=== PATIENT | male | born 1980 | race Caucasian/White ===

== ENCOUNTER 2021-05-13 20:07 | Emergency (ER) | payer BC ==
[2012-06-16 16:19] VITALS: BP 124/72
[2021-05-13] MEDS ORDERED: Sodium Chloride 0.9% 1000 ML 1,000 ML IV STA ×2 (20:13→20:17)
[2021-05-13] MEDS ORDERED: solu-MEDROL 125 MG, Sterile H2O 10 ml 2 ML IV ONE ×2 (20:13)
[2021-05-13] MEDS ORDERED: Zofran 4 MG/2 ML VIAL IV ONE (20:13)
[2021-05-13] MEDS ORDERED: Zithromax 500 MG/ 250 ML NaCl Premix 500 MG/250 ML IVPB IV STA (20:13)
[2021-05-13] MEDS ORDERED: Sodium Chloride 0.9% 1000 ML 1,000 ML ONE ×2 (20:16→21:27)
[2021-05-13] MEDS ORDERED: solu-MEDROL ONE (20:22)
[2021-05-13] MEDS ORDERED: Zofran 4 MG/2 ML VIAL ONE (20:22)
[2021-05-13] MEDS ORDERED: Zithromax 500 MG/ 250 ML NaCl Premix 500 MG/250 ML IVPB IV ONE (20:23)
[2021-05-13] MEDS ORDERED: Sterile H2O 10 ml IJ ONE (20:23)
[2021-05-13] MEDS ORDERED: Reglan 10 MG/2 ML IV ONE (20:25)
[2021-05-13 20:42] LABS: Absolute Neutrophil Ct (ANC) 3.31 (1.4-6.9); BASOPHIL % 0.2 % (0.0-0.4); Basophil (Absolute #) 0.01 (0-0.4); Eosinophil % 0.2 % (0.00-5.0); Eosinophil (Absolute #) 0.01 (0-0.5); Hemoglobin 16.7 gm/dl (12.5-18.0); Lymphocyte (Absolute #) 1.45 (1.0-4.6); Mean Cell Volume 90.4 fl (78-100); Mean Corpuscular Hemoglobin 30.2 pg (26-32); Mean Corpuscular Hgb Concent. 33.4 g/dl (32-36); Mean Platelet Volume 10.9 fl (7.5-11.0); Monocyte (Absolute #) 0.39 (0.0-1.3); Monocytes % 7.5 % (0.0-12.0); Neutrophil % 64.1 % (36.0-66.0); Platelet Count 226 K/mm3 (150-450); Red Blood Count 5.53 M/mm3 (4.1-5.6); Red Cell Distribution Width 13.1 % (11.5-14.0); White Blood Count 5.2 K/mm3 (4.0-10.5)
[2021-05-13 20:54] LABS: ALBUMIN 4.3 g/dL (3.5-5.0); ALKALINE PHOSPHATASE 64 U/L (38-126); ANION GAP 15.8 MEQ/L (5-15); BLOOD UREA NITROGEN 12 mg/dL (9-20); CHLORIDE 100 mmol/L (98-107); Calcium 8.7 mg/dL (8.4-10.2); Carbon Dioxide 26 mmol/L (22-30); Creatinine 1 1.14 mg/dL (0.66-1.25); EST GLOMERULAR FILTRATION RATE > 60.0 ML/MIN; Glucose 97 mg/dL (74-106); SGOT/AST 60 U/L (17-59); SGPT/ALT 59 U/L (0-50); SODIUM 138 mmol/L (137-145); Total Protein 7.4 g/dL (6.3-8.2)
[2021-05-13] MEDS ORDERED: Reglan 10 MG/2 ML ONE (21:07)
--- NOTE | 2021-05-13 21:37 | ERPHSYRPT ---
- History of Present Illness Time Seen by Provider: 05/13/21 20:25 Source: patient Exam Limitations: no limitations Patient Subjective Stated Complaint: pt states he tested positive for covid approx 9 days ago. has a frequent cough, and has been vomiting for last 24 hours. states he has urinated only about 2 times in last 24 hours and thinks he is dehydrated. temp at home has been 101-104 Triage Nursing Assessment: pt alert and oriented, answers questions approp. pt ambulates into room with steady gait noted. respirations nonlabored with freq uent hacking cough noted. skin hot and dry. Physician History: Patient is a 40-year-old male who is been sick for 9 days with Covid. His 7-year-old son developed Covid 11 days ago. And he tested +9 days ago he had nausea vomiting and decreased urine output he also has a bad cough which is productive he is short of breath and he has had intermittent nausea and vomiting as well as fever and chills. He is also lost his sense of smell. Sats on admission on room air were in the 98 -99 range Allergies/Adverse Reactions: No Known Drug Allergies Allergy (Unverified 06/16/12 14:46) Home Medications: No Home Meds 06/16/12 [History] Hx Tetanus, Diphtheria Vaccination/Date Given: No Hx Influenza Vaccination/Date Given: No Hx Pneumococcal Vaccination/Date Given: No Immunizations Up to Date: No Travel Risk - International Travel Have you traveled outside of the country in past 3 weeks: No - Coronavirus Screening Are you exhibiting any of the following symptoms?: Yes Symptoms: Fever, Cough: New Onset, Vomiting/Diarrhea, Loss of Taste or Smell, Headaches/Body Aches/Fatigue Close contact with a COVID-19 positive Pt in past 14-21 Days: Yes - Vaccine Status Have you recieved a Covid-19 vaccination: No - Review of Systems Constitutional: Fever, Chills, Fatigue, Lethargy, Night Sweats Eyes: No Symptoms Ears, Nose, & Throat: Nose Congestion Respiratory: Cough, Dyspnea, Dyspnea on Exertion (LAUREN) Cardiac: No Symptoms Abdominal/Gastrointestinal: Nausea, Vomiting Genitourinary Symptoms: No Symptoms Musculoskeletal: Arthralgias, Joint Pain, Myalgias Skin: No Symptoms Neurological: No Symptoms Psychological: No Symptoms Endocrine: No Symptoms - Past Medical History Pertinent Past Medical History: No - Past Surgical History Past Surgical History: Yes - Social History Smoking Status: Former smoker Exposure to second hand smoke: No Drug Use: none Patient Lives Alone: No - Nursing Vital Signs Nursing Vital Signs: Initial Vital Signs Temperature 100.1 F 05/13/21 20:20 Pulse Rate 90 05/13/21 20:20 Respiratory Rate 18 05/13/21 20:20 Blood Pressure 144/85 05/13/21 20:20 O2 Sat by Pulse Oximetry 97 05/13/21 20:20 Pain Scale Pain Intensity 4 - Physical Exam General Appearance: mild distress, alert Eye Exam: PERRL/EOMI, eyes nml inspection Ears, Nose, Throat Exam: normal ENT inspection, TMs normal, pharynx normal, moist mucous membranes Neck Exam: normal inspection, non-tender, supple, full range of motion Respiratory Exam: airway intact, crackles/rales, No respiratory distress Cardiovascular Exam: regular rate/rhythm, normal heart sounds Gastrointestinal/Abdomen Exam: soft, No tenderness Back Exam: normal inspection, No CVA tenderness, No vertebral tenderness Extremity Exam: normal inspection, normal range of motion Neurologic Exam: alert, oriented x 3, cooperative, normal mood/affect, sensation nml, No motor deficits Skin Exam: normal color, warm, dry, No rash Lymphatic Exam: No adenopathy SpO2: 97 - Course Nursing assessment & vital signs reviewed: Yes EKG Interpreted by Me: RATE (83), Sinus Rhythm, NORMAL AXIS, NORMAL INTERVALS, NORMAL QRS, NORMAL ST-T - Radiology Exams Chest X-ray Interpretation: Interpreted by me, Other (Bilateral opacities greater on the left than the right) Ordered Tests: Active Orders 24 hr Category Date Time Status EKG-ER Only STAT Care 05/13/21 20:13 Active CHEST 1 VIEW (PORTABLE) Stat Exams 05/13/21 20:15 Taken BLOOD CULTURE Stat Lab 05/13/21 20:38 Received CBC W DIFF Stat Lab 05/13/21 20:37 Completed CMP Stat Lab 05/13/21 20:37 Completed D-DIMER QUANTITATIVE Stat Lab 05/13/21 20:37 Completed Lactic Acid Stat Lab 05/13/21 20:13 Completed PROCALCITONIN Stat Lab 05/13/21 20:38 Completed TROPONIN Q3H Lab 05/13/21 20:37 Completed TROPONIN Q3H Lab 05/13/21 23:30 Ordered UA W/RFX UR CULTURE Stat Lab 05/13/21 20:14 Ordered Medication Summary Discontinued Medications Generic Name Dose Route Start Last Admin Trade Name Riley PRN Reason Stop Dose Admin Methylprednisolone Sodium 0 mg 05/13/21 20:13 05/13/21 20:24 Succinate 125 mg/ Sterile IV 05/13/21 20:14 125 mg Water 2 ml STAT ONE Administration Sodium Chloride Confirm 05/13/21 20:16 Sodium Chloride 0.9% 1000 Ml Administered 05/13/21 20:17 Dose 1,000 mls @ ud .ROUTE .STK-MED ONE Sodium Chloride 1,000 mls @ 999 mls/hr 05/13/21 20:13 05/13/21 20:19 Sodium Chloride 0.9% 1000 Ml IV 05/13/21 21:13 999 mls/hr .Q1H1M STA Administration Azithromycin 500 mg in 250 mls @ 250 mls/hr 05/13/21 20:13 05/13/21 20:26 Zithromax 500 Mg/ 250 Ml Nacl Premix IV 05/13/21 21:12 250 mls/hr STAT STA 250 mls/hr Administration Sodium Chloride 1,000 mls @ 999 mls/hr 05/13/21 20:17 05/13/21 21:29 Sodium Chloride 0.9% 1000 Ml IV 05/13/21 21:17 999 mls/hr .Q1H1M STA Administration Azithromycin Confirm 05/13/21 20:23 Zithromax 500 Mg/ 250 Ml Nacl Premix Administered 05/13/21 20:24 Dose 500 mg in 250 mls @ ud IV .STK-MED ONE Sodium Chloride Confirm 05/13/21 21:27 Sodium Chloride 0.9% 1000 Ml Administered 05/13/21 21:28 Dose 1,000 mls @ ud .ROUTE .STK-MED ONE Methylprednisolone Sodium Succinate Confirm 05/13/21 20:22 Solu-Medrol Administered 05/13/21 20:23 Dose 125 mg .ROUTE .STK-MED ONE Metoclopramide HCl 10 mg 05/13/21 20:25 05/13/21 21:08 Reglan 10 Mg/2 Ml IV 05/13/21 20:26 10 mg STAT ONE Administration Metoclopramide HCl Confirm 05/13/21 21:07 Reglan 10 Mg/2 Ml Administered 05/13/21 21:08 Dose 10 mg .ROUTE .STK-MED ONE Ondansetron HCl 4 mg 05/13/21 20:13 05/13/21 20:24 Zofran 4 Mg/2 Ml Vial IV 05/13/21 20:14 4 mg STAT ONE Administration Ondansetron HCl Confirm 05/13/21 20:22 Zofran 4 Mg/2 Ml Vial Administered 05/13/21 20:23 Dose 4 mg .ROUTE .STK-MED ONE Sterile Water Confirm 05/13/21 20:23 Sterile H2o 10 Ml Administered 05/13/21 20:24 Dose 10 ml IJ .STK-MED ONE Lab/Rad Data: Laboratory Result Diagrams 05/13/21 20:37 05/13/21 20:37 Laboratory Results 05/13/21 05/13/21 05/13/21 Range/Units 20:38 20:37 20:37 WBC (4.0-10.5) K/mm3 RBC (4.1-5.6) M/mm3 Hgb (12.5-18.0) gm/dl Hct (42-50) % MCV (78-100) fl MCH (26-32) pg MCHC (32-36) g/dl RDW (11.5-14.0) % Plt Count (150-450) K/mm3 MPV (7.5-11.0) fl Gran % (36.0-66.0) % Eos # (Auto) (0-0.5) Absolute Lymphs (auto) (1.0-4.6) Absolute Monos (auto) (0.0-1.3) Lymphocytes % (24.0-44.0) % Monocytes % (0.0-12.0) % Eosinophils % (0.00-5.0) % Basophils % (0.0-0.4) % Absolute Granulocytes (1.4-6.9) Basophils # (0-0.4) D-Dimer 484 (215-500) ng/mL Sodium (137-145) mmol/L Potassium (3.5-5.1) mmol/L Chloride (98-107) mmol/L Carbon Dioxide (22-30) mmol/L Anion Gap (5-15) MEQ/L BUN (9-20) mg/dL Creatinine (0.66-1.25) mg/dL Estimated GFR ML/MIN Glucose (74-106) mg/dL Lactic Acid (0.4-2.0) Calcium (8.4-10.2) mg/dL Total Bilirubin (0.2-1.3) mg/dL AST (17-59) U/L ALT (0-50) U/L Alkaline Phosphatase (38-126) U/L Troponin I < 0.012 (0.000-0.034) ng/mL Serum Total Protein (6.3-8.2) g/dL Albumin (3.5-5.0) g/dL Procalcitonin 0.101 H (0.030-0.080) ng/mL 05/13/21 05/13/21 05/13/21 Range/Units 20:37 20:37 20:13 WBC 5.2 (4.0-10.5) K/mm3 RBC 5.53 (4.1-5.6) M/mm3 Hgb 16.7 (12.5-18.0) gm/dl Hct 50.0 (42-50) % MCV 90.4 (78-100) fl MCH 30.2 (26-32) pg MCHC 33.4 (32-36) g/dl RDW 13.1 (11.5-14.0) % Plt Count 226 (150-450) K/mm3 MPV 10.9 (7.5-11.0) fl Gran % 64.1 (36.0-66.0) % Eos # (Auto) 0.01 (0-0.5) Absolute Lymphs (auto) 1.45 (1.0-4.6) Absolute Monos (auto) 0.39 (0.0-1.3) Lymphocytes % 28.0 (24.0-44.0) % Monocytes % 7.5 (0.0-12.0) % Eosinophils % 0.2 (0.00-5.0) % Basophils % 0.2 (0.0-0.4) % Absolute Granulocytes 3.31 (1.4-6.9) Basophils # 0.01 (0-0.4) D-Dimer (215-500) ng/mL Sodium 138 (137-145) mmol/L Potassium 4.0 (3.5-5.1) mmol/L Chloride 100 (98-107) mmol/L Carbon Dioxide 26 (22-30) mmol/L Anion Gap 15.8 H (5-15) MEQ/L BUN 12 (9-20) mg/dL Creatinine 1.14 (0.66-1.25) mg/dL Estimated GFR > 60.0 ML/MIN Glucose 97 (74-106) mg/dL Lactic Acid 1.4 (0.4-2.0) Calcium 8.7 (8.4-10.2) mg/dL Total Bilirubin 0.40 (0.2-1.3) mg/dL AST 60 H (17-59) U/L ALT 59 H (0-50) U/L Alkaline Phosphatase 64 (38-126) U/L Troponin I (0.000-0.034) ng/mL Serum Total Protein 7.4 (6.3-8.2) g/dL Albumin 4.3 (3.5-5.0) g/dL Procalcitonin (0.030-0.080) ng/mL - Progress Progress: improved Air Movement: good Blood Culture(s) Obtained: Yes Antibiotics given: Yes - Departure Departure Disposition: Home Clinical Impression: COVID-19 Condition: Fair Critical Care Time: No Referrals: BRYAN MOON MD [Primary Care Provider] - Instructions: Coronavirus Disease 2019 (COVID-19) Prescriptions: dexAMETHasone [Dexamethasone] 6 mg PO BID 5 Days #10 tablet Azithromycin 250 mg [Zithromax 250 MG TABLET] 500 mg PO STAT 5 Days #5 tablet
[2021-05-13 21:53] VITALS: BP 112/70
--- NOTE | 2021-05-13 21:55 | XRAY ---
Indication: Short of breath. Comparison: June 16, 2012. Portable chest demonstrates new subtle bilateral mid to lower lung interstitial alveolar opacities without consolidation/large effusion. Remaining heart and bony thorax normal.
[2021-05-13 22:34] LABS: Appearance SLIGHTLY CLOUDY (CLEAR); Bilirubin NEGATIVE (NEGATIVE); Blood NEGATIVE Ery/ul (0-5); Glucose NEGATIVE (NEGATIVE); Ketones TRACE (NEGATIVE); Leukocyte Esterase NEGATIVE (NEGATIVE); Mucus SLIGHT /HPF (NEGATIVE); Nitrite NEGATIVE (NEGATIVE); Protein,Urine Dip NEGATIVE (Negative); Specific Gravity 1.024 (1.005-1.025); Urobilinogen NEGATIVE mg/dL (0-1)
[2021-05-13 22:49] LABS: Bacteria NONE SEEN /HPF (NEGATIVE)
[2021-05-13 22:51] VITALS: PULSE 86; O2SAT 93
== END 2021-05-13 22:51 | disposition home or self-care (01) ==
LOC: ED 20:07
DX: U07.1 COVID-19 (principal)
CPT/HCPCS: 36000; 36415; 71045; 80053; 81001; 83605; 84145; 84484; 85025; 85379; 86140; 87040; 93005; 96365; 96374; 96375; 99284; J0456; J2405; J2930

== ENCOUNTER 2021-05-19 11:32 | Observation (INO) | payer BC ==
[2021-05-19] MEDS ORDERED: Sodium Chloride 0.9% 1000 ML 1,000 ML IV SCH (12:15)
[2021-05-19] MEDS ORDERED: ENOXAPARIN SODIUM SQ SCH (13:00)
[2021-05-19 13:14] LABS: Hematocrit 52.7 % (42-50); Hemoglobin 17.4 gm/dl (12.5-18.0); Mean Cell Volume 89.3 fl (78-100); Mean Corpuscular Hemoglobin 29.5 pg (26-32); Mean Platelet Volume 10.7 fl (7.5-11.0); Platelet Count 429 K/mm3 (150-450); Red Cell Distribution Width 13.2 % (11.5-14.0); White Blood Count 13.1 K/mm3 (4.0-10.5)
--- NOTE | 2021-05-19 13:35 | XRAY ---
Indication: Covid 19 pneumonia. Multiple contiguous axial images obtained through the chest prior to and following 80 cc Isovue 370 contrast as ordered. Comparison: None Lungs demonstrates diffuse bilateral peripheral airspace opacities without consolidation or effusion. Heart not enlarged. Aorta is normal in course and caliber. No pathologic mediastinal/hilar lymphadenopathy. Bony thorax intact. Limited upper abdomen demonstrates mild fatty liver and 15 cm splenomegaly. Impression: 1. Diffuse bilateral peripheral airspace disease. Commonly report imaging features of Covid 19 pneumonia are present. Other processes such as influenza pneumonia and organizing pneumonia, as can be seen with drug toxicity and connective tissue disease, can cause a similar imaging pattern. 2. Incidental fatty liver and splenomegaly.
[2021-05-19 13:45] LABS: ALBUMIN 4.1 g/dL (3.5-5.0); ALKALINE PHOSPHATASE 66 U/L (38-126); ANION GAP 14.2 MEQ/L (5-15); BLOOD UREA NITROGEN 17 mg/dL (9-20); CHLORIDE 103 mmol/L (98-107); Calcium 9.3 mg/dL (8.4-10.2); Carbon Dioxide 26 mmol/L (22-30); Creatinine 1 0.82 mg/dL (0.66-1.25); EST GLOMERULAR FILTRATION RATE > 60.0 ML/MIN; Glucose 129 mg/dL (74-106); Potassium 3.7 mmol/L (3.5-5.1); SGOT/AST 38 U/L (17-59); SGPT/ALT 107 U/L (0-50); SODIUM 140 mmol/L (137-145); Total Protein 7.4 g/dL (6.3-8.2)
[2021-05-19] MEDS ORDERED: REMDESIVIR 200 MG in Sodium Chloride 0.9% 250 ML 250 ML IV ONE (14:00)
[2021-05-19 14:07] LABS: ATYPICAL LYMPHS 2 %; BAND 3 % (0.0-2.0); Lymphocytes 16 % (24-44); Monocyte 8 % (0.0-12.0); Neutrophils 71 % (36.-66.); Total Cells Counted 100
[2021-05-19 14:08] LABS: Absolute Neutrophil Ct (ANC) 9.71 (1.4-6.9); Platelet Estimate NORMAL (NORMAL)
[2021-05-19] MEDS: Pepcid 20 MG VIAL IV SCH ×2 (14:15→21:19)
[2021-05-19] MEDS: solu-MEDROL 40 MG IV SCH ×2 (14:15→20:03)
[2021-05-19] MEDS: Zithromax 500 MG/ 250 ML NaCl Premix 500 MG/250 ML IVPB IV SCH (14:20)
[2021-05-19] MEDS: ENOXAPARIN SODIUM SQ SCH (14:21)
[2021-05-19 15:21] LABS: ARTERIAL BLOOD GAS pH 7.47 (7.35-7.45)
[2021-05-19 15:22] LABS: A-aADO2 37; ARTERIAL BLD GAS O2 SATURATION 95.8 % (95-100); ARTERIAL BLOOD GAS BASE EXCESS 2.1 (-2.0-2.0); ARTERIAL BLOOD GAS PCO2 35 mmHg (35-45); ARTERIAL BLOOD GAS PO2 69 mmHg (75-100); CARBON DIOXIDE 26 mEq/L (23-27); HCO3- 25.5 (22-28)
[2021-05-19 15:23] LABS: ABG HEMOGLOBIN 16.9; ABG POTASSIUM 3.5 (3.5-5.1); ARTERIAL BLOOD GAS FIO2 21 %; HGB O2 SAT 93.5 g/dF (94-100)
[2021-05-19 15:24] LABS: ABG SITE RIGHT BRACHIAL; CARBOXYHEMOGLOBIN 1.4 % THgb (0.0-6.9)
[2021-05-19] MEDS: ROCEPHIN 1 Gm-D5w 50 ml Bag** 1 G/50 ML IVPB IV SCH (16:36)
[2021-05-20] MEDS: solu-MEDROL 40 MG IV SCH ×2 (02:38→08:47)
[2021-05-20 06:37] LABS: Hematocrit 49.6 % (42-50); Hemoglobin 16.4 gm/dl (12.5-18.0); Mean Cell Volume 89.9 fl (78-100); Mean Corpuscular Hemoglobin 29.7 pg (26-32); Mean Corpuscular Hgb Concent. 33.1 g/dl (32-36); Mean Platelet Volume 10.3 fl (7.5-11.0); Platelet Count 402 K/mm3 (150-450); Red Blood Count 5.52 M/mm3 (4.1-5.6); White Blood Count 11.5 K/mm3 (4.0-10.5)
[2021-05-20 06:45] LABS: ALBUMIN 3.6 g/dL (3.5-5.0); BLOOD UREA NITROGEN 16 mg/dL (9-20); CHLORIDE 106 mmol/L (98-107); Calcium 8.7 mg/dL (8.4-10.2); Carbon Dioxide 23 mmol/L (22-30); Creatinine 1 0.71 mg/dL (0.66-1.25); EST GLOMERULAR FILTRATION RATE > 60.0 ML/MIN; Glucose 144 mg/dL (74-106); Potassium 4.2 mmol/L (3.5-5.1); SODIUM 139 mmol/L (137-145); Total Protein 6.7 g/dL (6.3-8.2)
[2021-05-20 06:46] LABS: ALKALINE PHOSPHATASE 64 U/L (38-126); ANION GAP 14.7 MEQ/L (5-15); SGOT/AST 38 U/L (17-59); SGPT/ALT 110 U/L (0-50)
[2021-05-20] MEDS: Pepcid 20 MG VIAL IV SCH (08:48)
[2021-05-20] MEDS: ENOXAPARIN SODIUM SQ SCH (08:48)
[2021-05-20 09:10] VITALS: BP 127/85
[2021-05-20 09:13] LABS: Lymphocytes 8 % (24-44); Monocyte 7 % (0.0-12.0); Neutrophils 85 % (36.-66.); Total Cells Counted 100
[2021-05-20 09:15] LABS: Platelet Estimate NORMAL (NORMAL)
[2021-05-20] MEDS ORDERED: REMDESIVIR 100 MG in Sodium Chloride 0.9% 100 ML BAG 100 ML IV SCH (10:00)
[2021-05-20 10:17] VITALS: O2SAT 93
[2021-05-20] MEDS: ROCEPHIN 1 Gm-D5w 50 ml Bag** 1 G/50 ML IVPB IV SCH (10:29)
[2021-05-20] MEDS: Zithromax 500 MG/ 250 ML NaCl Premix 500 MG/250 ML IVPB IV SCH (10:30)
[2021-05-20 12:34] VITALS: PULSE 69
== END 2021-05-20 12:04 | disposition home or self-care (01) ==
LOC: INTOOBSV 11:59 → OBSVTOIN 11:59 → MED SURG 11:59
PROVIDERS: ADMIT General Practice; ATTEND General Practice
DX: U07.1 COVID-19 (principal); J12.82 Pneumonia due to coronavirus disease 2019; Z79.899 Other long term (current) drug therapy
CPT/HCPCS: 36415; 36600; 71270; 80053; 82375; 82803; 83605; 85025; 85379; 87040; 93005; 93268; 94762; G0378; J0456; J0696; J1650; J2920